=== PATIENT | male | born 1975 | race Caucasian/White ===

== ENCOUNTER 2017-03-10 14:34 | Observation (INO) | payer BC, OTHER ==
--- NOTE | 2017-03-10 14:38 | PDOC ---
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 The patient describes his arm and chest pain as an intermittent stabbing pain that is triggered by raising his hand. The patient notes that his chest and left arm pain is worsened on exertion, deep inhalation, and when he uses dipping tobacco. The patient notes that his pain is alleviated when at rest. He notes that on Saturday he had an emergency root canal for an infected abscess. He states that he has been on antibiotics since his root canal. 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 Family History: Father- 2 Strokes, Cardiomegaly <Omid Mcfarland - Last Filed: 03/10/17 15:14> <Олег Reyes - Last Filed: 03/10/17 16:27> - General Chief Complaint: Pain Stated Complaint: LEFT ARM PAIN AND CHEST PAIN AND DIZZY Time Seen by Provider: 03/10/17 14:38 Past History <Omid Mcfarland - Last Filed: 03/10/17 15:14> - Past Medical History Anemia: No Asthma: No Cancer: No Cardiac Disorders: No CVA: No COPD: No CHF: No DVT: No Dementia: No Diabetes: No Dialysis: No - Immunization History Immunization Up to Date: Yes - Suicide/Smoking/Psychosocial Hx Smoking Status: No Smoking History: Never smoked Years of Tobacco Use: 10 Number of Cigarettes Smoked Daily: 0 If you are a former smoker, when did you quit?: 2006 Hx Alcohol Use: No <Олег Reyes - Last Filed: 03/10/17 16:27> - Past Medical History Allergies/Adverse Reactions: Allergies Allergy/AdvReac Type Severity Reaction Status Date / Time No Known Allergies Allergy Verified 03/10/17 14:36 Home Medications: Ambulatory Orders NK [No Known Home Medication] 03/10/17 Review of Systems - Review of Systems Able to Perform ROS?: Yes Comments:: 03/10/17 14:56 CONSTITUTIONAL: No: Chills, Diaphoresis, Fever, Loss of Appetite, Malaise, Weakness, Weight Stable, Unintentional Wgt. Loss, Unexplained wgt Loss, Other HEENTM: No: Eye Pain, Blurred Vision, Tearing, Recent change in vision, Double Vision, Cataracts, Ear Pain, Ocular Prothesis, Ear Discharge, Nose Pain, Nose Congestion , Tinnitus, Nose Bleeding, Hearing Loss, Throat Pain, Throat Swelling, Mouth Pain, Dental Problems, Difficulty Swallowing, Mouth Swelling, Other RESPIRATORY: No: Cough, Orthopnea, Shortness of Breath, SOB with Exertion, SOB at Rest, Stridor, Wheezing, Productive cough, Hemoptysis, Other CARDIAC (ROS): Yes: Symptoms Reported, See HPI. Chest pain, Lightheadedness, dizziness No: Edema, Irregular Heart Rate, Palpitations, Syncope, Chest Tightness, Other ABD/GI: No: Abdominal Distended, Abd. Pain w/ defecation, Blood Streaked Bowels, Constipated, Diarrhea, Difficulty Swallowing, Nausea, Poor Appetite, Poor Fluid Intake, Rectal Bleeding, Vomiting, Indigestion, Abdominal cramping, Tarry Stools , Other : No: dysuria MUSCULOSKELETAL: Yes: Symptoms Reported, See HPI. No: Back Pain, Gout, Joint Pain, Joint Swelling, Muscle Pain, Muscle Weakness, Neck Pain, Joint Stiffness, Other INTEGUMENTARY: No: Bruising, Change in Color, Change in Hair/Nails, Dryness, Erythema, Flushing , Lesions, Lumps, Pallor, Pruritus, Rash, Sweating, Other NEUROLGOICAL: Yes: Symptoms reported, See HPI. Dizziness No: Headache, Numbness, Paresthesia, Pre-Existing Deficit, Seizure, Tingling, Tremors, Weakness, Unsteady Gait, Ataxia, All Other Systems: Reviewed and Negative <Omid Mcfarland - Last Filed: 03/10/17 15:14> *Physical Exam - Physical Exam Comments: 03/10/17 14:56 GENERAL APPEARANCE: Yes: Appropriately Dressed, Nourished. No: Apparent Distress, Disheveled, Mild Distress, Moderate Distress, Severe Distress, Alcohol on Breath, Intoxicated, Cachetic, Obese, Thin, Other HEENT: positive: EOMI, LAURENCE, Normal ENT Inspection, Normal Voice, TMs Normal, Pharynx Normal. negative: Symmetrical, Pale Conjunctivae, Photophobia, Scleral Icterus (R), Scleral Icterus (L), Muffled/Hoarse voice, Pharyngeal Erythema, Tonsillar Exudate, Tonsillar Erythema, Nasal Congestion, Rhinorrhea, Sinus Tenderness, Orbits, Hearing Decreased, Hearing Grossly Normal, TM Bulging, TM Dull, TM Erythema, Lesions, Torre, Excessive drooling, Thrush, Other NECK: positive: Trachea midline, Normal Thyroid, Supple. negative: Tender, Rigid, Carotid bruit, Decreased range of motion, Stridor, Lymphadenopathy (R), Lymphadenopathy (L), Rigidity, Tender lateral, Tender midline, Thyromegaly, Other RESPIRATORY/CHEST: positive: Lungs Clear, Normal Breath Sounds. negative: Accessory Muscle Use, Chest Tender, Respiratory Distress, Labored Respiration, Rapid RR, Decreased Breath Sounds, Paradoxal Breathing, Crackles, Rales, Rhonchi , Stridor, Wheezing, Dullness, Hyperresonant, Plerual Rub, Other CARDIOVASCULAR: positive: Regular Rate, Regular Rhythm, S1, S2. negative: Edema , JVD, Murmur, Bradycardia, Tachycardia, Diastolic Murmur, Systolic Murmur, Gallop/S3, Gallop/S4, Irregularly Irregular, Irregular, Other VASCULAR PULSES: Femoral (R): 4+, Femoral (L): 4+, Carotid (R): 4+, Carotid (L) : 4+, Dorsalis-Pedis (R): 4+, Doralis-Pedis (L): 4+ Gastrointestinal/Abdominal: positive: Normal Bowel Sounds, Flat, Soft. negative : Tender, Organomegaly, Pulsatile Mass, Increased Bowel Sounds, Decreased BS, Protuberent, Distended, Guarding, Rebound, Tenderness, Hernia, Mass, Hepatomegaly, Spleenomegaly, Other LYMPHATIC: negative: Adenopathy, Tenderness, Other MUSCULOSKELETAL: positive: Normal Inspection. negative: CVA Tenderness, CVA Tenderness (R), CVA Tenderness (L), Decreased Range of Motion, Muscle Spasm, Vertebral Tenderness, Other EXTREMITY: positive: Normal Capillary Refill, Normal Inspection, Normal Range of Motion. negative: Tender, Pelvis Stable, Coldness, Cyanosis, Delayed Capillary Refill, Pedal Edema, Swelling, Calf Tenderness, Erythema, Inflammation , Other INTEGUMENTARY: positive: Normal Color, Dry, Warm. 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 negative: Abnormal Cranial NS, Respond to painful stimul, Responsive, EOM Palsy, Facial Droop, Numbness, Sensory Deficit, Finger to Nose, Confused, Disoriented, Depressed Affect, Babinski, Other <Omid Mcfarland - Last Filed: 03/10/17 15:14> Heart Score/ECG Review - ECG Impressions Comment:: 03/10/17 14:58 ECG Impression: Normal sinus rhythm at 62 rate. No STEMI. Incomplete RBBB. Only change from prior ECG is a lead 3 inverted T-wave. <Omid Mcfarland - Last Filed: 03/10/17 15:14> - History History: Moderately suspicious - Electrocardiogram EKG: Normal - Age Age: </= 45 - Risk Factors Based on the list above the patient has:: No risk factors known - Troponin Troponin: </= normal limit - Score Heart Score - Total: 1 <Олег Reyes - Last Filed: 03/10/17 16:27> ED Treatment Course - LABORATORY CBC & Chemistry Diagram: 03/10/17 15:07 03/10/17 15:07 - RADIOLOGY Radiograph Interpretation: 03/10/17 15:16 Chest X-ray Impression: No acute disease. <Omid Mcfarland - Last Filed: 03/10/17 15:14> - LABORATORY CBC & Chemistry Diagram: 03/10/17 15:07 03/10/17 15:07 - ADDITIONAL ORDERS Additional order review: 03/10/17 16:25 CXR normal EKG only change is lead III T wave inversion Discussed with Hospitalist Dr. Santos, will admit for obervation, and stress test in morning Patient is in agreement with plan The jaw pain for the tooth canal may be heart related <Олег Reyes - Last Filed: 03/10/17 16:27> *DC/Admit/Observation/Transfer - Attestations Scribe Attestion: 03/10/17 14:58 Documentation prepared by Omid Mcfarland, acting as medical assistant prn for Олег Reyes MD. <Omid Mcfarland - Last Filed: 03/10/17 15:14> - Discharge Dispostion Admit: Yes <Олег Reyes - Last Filed: 03/10/17 16:27> Diagnosis at time of Disposition: Chest pain Qualifiers: Chest pain type: unspecified Qualified Code(s): R07.9 - Chest pain, unspecified - Discharge Dispostion Condition at time of disposition: Stable
[2017-03-10 15:26] LABS: BASO % 1.5 % (0-2.0); EOS % 4.3 % (0-4.5); HEMATOCRIT 47.7 % (35.4-49); HEMOGLOBIN 15.6 GM/dl (11.7-16.9); LYMPH % 31.3 % (8-40); MCH 30.5 pg (25.7-33.7); MCHC 32.7 g/dl (32.0-35.9); MEAN CELL VOLUME 93.2 fl (80-96); MEAN PLT VOLUME 9.1 fl (7.5-11.1); MONO % 9.5 % (3.8-10.2); NEUT % 53.4 % (42.8-82.8); PLATELET COUNT 213 K/MM3 (134-434); RBC 5.12 M/mm3 (4.00-5.60); RDW 12.4 % (11.9-15.9); WHITE BLOOD COUNT 5.3 K/mm3 (4.0-10.8)
[2017-03-10 15:34] LABS: ALBUMIN 4.1 g/dl (3.5-5.0); ALK PHOS 40 U/L (32-92); ANION GAP 7 (8-16); BILIRUBIN,TOTAL 0.8 mg/dl (0.2-1.0); BLOOD UREA NITROGEN 10 mg/dl (7-18); CALCIUM 9.2 mg/dl (8.4-10.2); CHLORIDE 102 mmol/L (98-107); CO2 25 mmol/L (22-28); CREATININE 0.8 mg/dl (0.6-1.3); GLUCOSE,RANDOM 107 mg/dl (74-106); POTASSIUM 4.1 mmol/L (3.5-5.1); SGOT/AST 25 U/L (10-42); SGPT/ALT 32 U/L (10-40); SODIUM 134 mmol/L (136-145); TOT PROT 6.9 g/dl (6.4-8.3)
[2017-03-10 17:57] VITALS: BMI 24.8
[2017-03-10] MEDS ORDERED: ASPIRIN 325 MG TABLET PO ONE (21:53)
--- NOTE | 2017-03-10 22:10 | HP ---
CHIEF COMPLAINT: chest pain PCP: none HISTORY OF PRESENT ILLNESS: This is a 41 year old male with no past medical history who presented to the ED with chest pain, left arm pain/numbness and dizziness intermittently x 5 days. dizziness sometimes occurs with standing but not always and sometimes when he steps off an elevator. Chest pain is intermittent and left arm pain occurs with certain movements. Left arm goes numb if laying in bed and holding his phone up for long periods; resolves with putting arm down. He is also root canal on Saturday. ER course was notable for: (1) troponin neg x 1 (2) ECG with incomplete RBBB Recent Travel: pt denies PAST MEDICAL HISTORY: pt denies PAST SURGICAL HISTORY: pt denies Social History: Smoking: quit smoking 10y ago, still uses dip Alcohol: 4-6 beers most nights after work, more on weekends, never had any tremors or withdrawal sxs Drugs: pt denies Family History: father with h/o CVA in 70s, DM, PPM mother with dementia, HTN maternal aunts and uncles with CVAS sis-healthy 3 biological children-healthy Allergies No Known Allergies Allergy (Verified 03/10/17 14:36) HOME MEDICATIONS: 3 Medication Instructions Recorded NK [No Known Home Medication] 03/10/17 REVIEW OF SYSTEMS CONSTITUTIONAL: Absent: fever, chills, diaphoresis, generalized weakness, malaise, loss of appetite, weight change HEENT: Absent: rhinorrhea, nasal congestion, throat pain, throat swelling, difficulty swallowing, mouth swelling, ear pain, eye pain, visual changes CARDIOVASCULAR: Present: chest pain, L arm pain/numbness Absent: syncope, palpitations, irregular heart rate, lightheadedness, peripheral edema RESPIRATORY: Absent: cough, shortness of breath, dyspnea with exertion, orthopnea, wheezing, stridor, hemoptysis GASTROINTESTINAL: Absent: abdominal pain, abdominal distension, nausea, vomiting, diarrhea, constipation, melena, hematochezia GENITOURINARY: Absent: dysuria, frequency, urgency, hesitancy, hematuria, flank pain, genital pain MUSCULOSKELETAL: Absent: myalgia, arthralgia, joint swelling, back pain, neck pain SKIN: Absent: rash, itching, pallor HEMATOLOGIC/IMMUNOLOGIC: Absent: easy bleeding, easy bruising, lymphadenopathy, frequent infections ENDOCRINE: Absent: unexplained weight gain, unexplained weight loss, heat intolerance, cold intolerance NEUROLOGIC: Present: dizziness Absent: headache, focal weakness or paresthesias, unsteady gait, seizure, mental status changes, bladder or bowel incontinence PSYCHIATRIC: Absent: anxiety, depression, suicidal or homicidal ideation, hallucinations. PHYSICAL EXAMINATION Vital Signs - 24 hr 3 03/10/17 03/10/17 03/10/17 14:36 16:27 17:50 Temperature 97.4 F L 98.5 F Pulse Rate 73 87 Pulse Rate [ 80 Right Radial] Respiratory 18 16 17 Rate Blood Pressure 105/78 121/74 Blood Pressure 113/77 [Right Arm] O2 Sat by Pulse 100 98 Oximetry (%) GENERAL: Awake, alert, and fully oriented, in no acute distress. HEAD: Normal with no signs of trauma. EYES: Pupils equal, round and reactive to light, extraocular movements intact, sclera anicteric, conjunctiva clear. No lid lag. EARS, NOSE, THROAT: Ears normal, nares patent, oropharynx clear without exudates. Moist mucous membranes. NECK: Normal range of motion, supple without lymphadenopathy, JVD, or masses. LUNGS: Breath sounds equal, clear to auscultation bilaterally. No wheezes, and no crackles. No accessory muscle use. HEART: Regular rate and rhythm, normal S1 and S2 without murmur, rub or gallop. ABDOMEN: Soft, nontender, not distended, normoactive bowel sounds, no guarding, no rebound, no masses. No hepatomegaly or splenomegaly. MUSCULOSKELETAL: Normal range of motion at all joints. No bony deformities or tenderness. No CVA tenderness. UPPER EXTREMITIES: 2+ pulses, warm, well-perfused. No cyanosis. No clubbing. No peripheral edema. LOWER EXTREMITIES: 2+ pulses, warm, well-perfused. No calf tenderness. No peripheral edema. NEUROLOGICAL: Cranial nerves II-XII intact. Normal speech. Normal gait. PSYCHIATRIC: Cooperative. Good eye contact. Appropriate mood and affect. SKIN: Warm, dry, normal turgor, no rashes or lesions noted, normal capillary refill. Laboratory Results - last 24 hr 3 03/10/17 03/10/17 03/10/17 15:07 15:07 15:07 WBC 5.3 RBC 5.12 Hgb 15.6 Hct 47.7 MCV 93.2 MCH 30.5 MCHC 32.7 RDW 12.4 Plt Count 213 MPV 9.1 Neutrophils % 53.4 Lymphocytes % 31.3 Monocytes % 9.5 Eosinophils % 4.3 Basophils % 1.5 Sodium 134 L Potassium 4.1 Chloride 102 Carbon Dioxide 25 Anion Gap 7 L BUN 10 Creatinine 0.8 Creat Clearance w eGFR > 60 Random Glucose 107 H Calcium 9.2 Total Bilirubin 0.8 AST 25 ALT 32 Alkaline Phosphatase 40 Troponin I < 0.03 L Total Protein 6.9 Albumin 4.1 ECG Normal sinus rhythm with sinus arrhythmia vent rate 62, QTC 383 incomplete RBB ASSESSMENT/PLAN: 41yF with no PMH presented with chest pain, L arm pain / numbness and dizziness off and on x 5 days. Chest pain - unlikely cardiac but given family history will admit for troponins and stress test in am - troponin neg x 1, pending x 2 more - NPO for stress test in am - left arm pain/numbness could be referred from neck, would get outpatient eval if persists DVT PPX - deferred, expected LOS <48h FEN - defer ivf, tolerating po and will be NPO for short while only - BMP in am - NPO after midnight. Dispo: pt currently requires further observation for management of his emergent condition. Visit type - Emergency Visit Emergency Visit: Yes ED Registration Date: 03/10/17 Care time: The patient presented to the Emergency Department on the above date and was hospitalized for further evaluation of their emergent condition. - New Patient This patient is new to me today: Yes Date on this admission: 03/10/17 - Critical Care Critical Care patient: No
[2017-03-11 09:02] LABS: ANION GAP 9 (8-16); BLOOD UREA NITROGEN 10 mg/dl (7-18); CALCIUM 8.9 mg/dl (8.4-10.2); CHLORIDE 103 mmol/L (98-107); CO2 25 mmol/L (22-28); CREATININE 0.8 mg/dl (0.6-1.3); GLUCOSE,RANDOM 102 mg/dl (74-106); POTASSIUM 3.9 mmol/L (3.5-5.1); SODIUM 137 mmol/L (136-145)
[2017-03-11 09:05] LABS: BASO % 0.4 % (0-2.0); EOS % 5.8 % (0-4.5); HEMATOCRIT 44.3 % (35.4-49); HEMOGLOBIN 14.6 GM/dl (11.7-16.9); LYMPH % 39.8 % (8-40); MCH 30.8 pg (25.7-33.7); MCHC 33.1 g/dl (32.0-35.9); MEAN CELL VOLUME 93.1 fl (80-96); MEAN PLT VOLUME 8.8 fl (7.5-11.1); MONO % 8.7 % (3.8-10.2); NEUT % 45.3 % (42.8-82.8); PLATELET COUNT 213 K/MM3 (134-434); RBC 4.76 M/mm3 (4.00-5.60); RDW 11.9 % (11.9-15.9); WHITE BLOOD COUNT 5.4 K/mm3 (4.0-10.8)
--- NOTE | 2017-03-11 11:15 | PN ---
Physical Exam: SUBJECTIVE: Patient seen and examined, reports feeling well, denies any chest pain OBJECTIVE: patient is a 41 year old male with no past medical history, admitted from the emergency department for chest pain r/o acs. Vital Signs Period Temp Pulse Resp BP Sys/Marie Pulse Ox Last 24 Hr 97.4 F-98.5 F 65-87 16-18 95-121/51-78 97-100 GENERAL: The patient is awake, alert, and fully oriented, in no acute distress. HEAD: Normal with no signs of trauma. EYES: PERRL, extraocular movements intact, sclera anicteric, conjunctiva clear. No ptosis. ENT: Ears normal, nares patent, oropharynx clear without exudates, moist mucous membranes. NECK: Trachea midline, full range of motion, supple. LUNGS: Breath sounds equal, clear to auscultation bilaterally, no wheezes, no crackles, no accessory muscle use. HEART: Regular rate and rhythm, S1, S2 without murmur, rub or gallop. ABDOMEN: Soft, nontender, nondistended, normoactive bowel sounds, no guarding, no rebound, no hepatosplenomegaly, no masses. EXTREMITIES: 2+ pulses, warm, well-perfused, no edema. NEUROLOGICAL: Cranial nerves II through XII grossly intact. Normal speech, gait not observed. PSYCH: Normal mood, normal affect. SKIN: Warm, dry, normal turgor, no rashes or lesions noted Laboratory Results - last 24 hr 03/10/17 03/10/17 03/10/17 15:07 15:07 15:07 WBC 5.3 RBC 5.12 Hgb 15.6 Hct 47.7 MCV 93.2 MCH 30.5 MCHC 32.7 RDW 12.4 Plt Count 213 MPV 9.1 Neutrophils % 53.4 Lymphocytes % 31.3 Monocytes % 9.5 Eosinophils % 4.3 Basophils % 1.5 Sodium 134 L Potassium 4.1 Chloride 102 Carbon Dioxide 25 Anion Gap 7 L BUN 10 Creatinine 0.8 Creat Clearance w eGFR > 60 Random Glucose 107 H Calcium 9.2 Magnesium Total Bilirubin 0.8 AST 25 ALT 32 Alkaline Phosphatase 40 Creatine Kinase Troponin I < 0.03 L Total Protein 6.9 Albumin 4.1 03/10/17 03/10/17 03/11/17 21:00 21:00 06:00 WBC 5.4 RBC 4.76 Hgb 14.6 Hct 44.3 MCV 93.1 MCH 30.8 MCHC 33.1 RDW 11.9 Plt Count 213 MPV 8.8 Neutrophils % 45.3 Lymphocytes % 39.8 D Monocytes % 8.7 Eosinophils % 5.8 H Basophils % 0.4 Sodium Potassium Chloride Carbon Dioxide Anion Gap BUN Creatinine Creat Clearance w eGFR Random Glucose Calcium Magnesium Total Bilirubin AST ALT Alkaline Phosphatase Creatine Kinase 94 Troponin I < 0.03 L Total Protein Albumin 03/11/17 03/11/17 03/11/17 06:00 06:00 06:00 WBC RBC Hgb Hct MCV MCH MCHC RDW Plt Count MPV Neutrophils % Lymphocytes % Monocytes % Eosinophils % Basophils % Sodium 137 Potassium 3.9 Chloride 103 Carbon Dioxide 25 Anion Gap 9 BUN 10 Creatinine 0.8 Creat Clearance w eGFR Random Glucose 102 Calcium 8.9 Magnesium 2.0 Total Bilirubin AST ALT Alkaline Phosphatase Creatine Kinase 79 Troponin I < 0.03 L Total Protein Albumin ECG Normal sinus rhythm with sinus arrhythmia vent rate 62, QTC 383 incomplete RBB ASSESSMENT/PLAN: Chest pain - troponin x 3 wnl - pending echo and stress DVT PPX - deferred, expected LOS <48h FEN - low sodium diet - Dispo: pt currently requires further observation for management of his emergent condition. Visit type - Emergency Visit Emergency Visit: Yes ED Registration Date: 03/10/17 Care time: The patient presented to the Emergency Department on the above date and was hospitalized for further evaluation of their emergent condition. - New Patient This patient is new to me today: Yes Date on this admission: 03/11/17 - Critical Care Critical Care patient: No - Discharge Referral Referred to [facility] Med [facility] No
--- NOTE | 2017-03-11 15:55 | EKG ---
Test Reason : Blood Pressure : / mmHG Vent. Rate : 062 BPM Atrial Rate : 062 BPM P-R Int : 124 ms QRS Dur : 102 ms QT Int : 378 ms P-R-T Axes : 057 013 022 degrees QTc Int : 383 ms NORMAL SINUS RHYTHM WITH SINUS ARRHYTHMIA INCOMPLETE RIGHT BUNDLE BRANCH BLOCK WHEN COMPARED WITH ECG OF 05-AUG-2008 11:45, NO SIGNIFICANT CHANGE WAS FOUND Confirmed by MD ANNY, PHILIPPE ([id number]) on 03/11/2017 3:55:39 PM Referred By: HECTOR PAIGE Confirmed By:PHILIPPE MCCORMICK MD
[2017-03-11] MEDS ORDERED: diphenhydrAMINE HCL 25 MG CAPSULE (FP) PO ONE (21:00)
[2017-03-11] MEDS: ASPIRIN COATED 81 MG TABLET.EC PO SCH (23:17)
[2017-03-12] MEDS: ASPIRIN COATED 81 MG TABLET.EC PO SCH (09:15)
[2017-03-12 10:06] LABS: CHOLESTEROL 173 mg/dl; HDL CHOLESTEROL 47 mg/dl (29-89); LDL CHOLESTEROL (ONLY DFH) 98 mg/dl; TRIGLYCERIDES 138 mg/dl (35-160)
--- NOTE | 2017-03-12 11:24 | CONSULT ---
Consult Consult Specialty:: Cardiology Reason for Consultation:: Chest pain, abnormal stress test - History of Present Illness Chief Complaint: Chest pain History of Present Illness: 41 yo male with past tobacco until ya, no sign pmhx, here with left chest pain Patient has no hx of Mi, CHF or CP syndrome. Since saturday, he has been having intermittent, sharp, left arm/chest pain -> reproducible when holding cell phone, w/o associate symptoms No exertional symptoms. Some dizziness with change in body position, independent of the chest pain. No SOB, palpitations. No BAM, OND or orthopnea No regular exercise. He reports having hip his left arm against a door recently They did a nuclear stress test which showed; 10" B, 11.7 mets, 97% MPHR, small , subtle, mild inferior ischemia, from base-mid cavity, EF 589% Echo showed nl LV size , EF 61%, mild MR, borderline AR dil at 3.8 cm Hence this consult - History Source History Provided By: Patient - Alcohol/Substance Use Hx Alcohol Use: Yes Number of Drinks Daily: 4 - Smoking History Smoking history: Former smoker (1ppd -> quit 10 ya) Have you smoked in the past 12 months: No Aproximately how many cigarettes per day: 0 If you are a former smoker, when did you quit?: 2006 - Social History Usual Living Arrangement: With Spouse 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 Home Medications - Allergies Allergies/Adverse Reactions: Allergies Allergy/AdvReac Type Severity Reaction Status Date / Time No Known Allergies Allergy Verified 03/10/17 14:36 - Home Medications Home Medications: Ambulatory Orders NK [No Known Home Medication] 03/10/17 Family Disease History - Family Disease History Family Disease History: Heart Disease: Father (CHf anf PPM, dfied of CVA) Review of Systems - Review of Systems Constitutional: reports: No Symptoms Eyes: reports: No Symptoms HENT: reports: No Symptoms Neck: reports: No Symptoms Cardiovascular: reports: Other (see HPI) Respiratory: reports: No Symptoms Musculoskeletal: reports: No Symptoms Neurological: reports: No Symptoms Psychiatric: reports: No Symptoms Physical Exam Vital Signs: Vital Signs Temperature 97.5 F L 03/12/17 06:00 Pulse Rate 63 03/12/17 06:00 Respiratory Rate 17 03/12/17 06:00 Blood Pressure 108/62 03/12/17 06:00 O2 Sat by Pulse Oximetry (%) 97 01/30/18 06:00 Constitutional: Yes: No Distress Eyes: No: Conjunctiva Clear HENT: Yes: Atraumatic Neck: Yes: Supple Cardiovascular: Yes: Regular Rate and Rhythm. No: Murmur Respiratory: Yes: CTA Bilaterally Gastrointestinal: Yes: Normal Bowel Sounds, Soft. No: Tenderness Extremities: Yes: Other Edema: No Peripheral Pulses WNL: Yes Neurological: Yes: Alert, Oriented Psychiatric: Yes: Alert, Oriented Labs: CBC, BMP 03/11/17 06:00 03/11/17 06:00 Imaging - Results Chest X-ray: Report Reviewed, Image Reviewed EKG: Report Reviewed, Image Reviewed (SR, inc RBBB) Assessment/Plan 41 yo ex smoker, no family hx of premature CAD (but father with PPM/CHF in his 60s), here atypical chest pain -> reproducible with arm mvt/position He ruled out for an [place], buta stress test showed small, mild inferior ischemia Given the above, I think pt should be managed medically, ie ASA 81 daily and risk factor modification to include diet, regular exercise, etc Rec: ASA 81 daily Check fasting lipids -> ow threshold for treating with statin May d/c home Reduce etoh intake Regular exercise, diet Thanks! D/w pt and at bedside D/w Erika Clemons
--- NOTE | 2017-03-12 11:59 | DS ---
Physical Exam: SUBJECTIVE: Patient seen and examined, reports feeling well, denies any episodes of chest discomfort. OBJECTIVE: Patient is a 41 year old male with no past medical history who presented to the ED with chest pain, left arm pain/numbness and dizziness intermittently x 5 days. dizziness sometimes occurs with standing but not always and sometimes when he steps off an elevator. Chest pain is intermittent and left arm pain occurs with certain movements. Left arm goes numb if laying in bed and holding his phone up for long periods; resolves with putting arm down. He is also root canal on Saturday. ER course was notable for: (1) troponin neg x 1 (2) ECG with incomplete RBBB Vital Signs Period Temp Pulse Resp BP Sys/Marie Pulse Ox Last 24 Hr 97.5 F-98.8 F 57-81 17-19 101-112/59-70 97-99 PHYSICAL EXAM GENERAL: The patient is awake, alert, and fully oriented, in no acute distress. HEAD: Normal with no signs of trauma. EYES: PERRL, extraocular movements intact, sclera anicteric, conjunctiva clear. ENT: Ears normal, nares patent, oropharynx clear without exudates, moist mucous membranes. NECK: Trachea midline, full range of motion, supple. LUNGS: Breath sounds equal, clear to auscultation bilaterally, no wheezes, no crackles, no accessory muscle use. HEART: Regular rate and rhythm, S1, S2 without murmur, rub or gallop. ABDOMEN: Soft, nontender, nondistended, normoactive bowel sounds, no guarding, no rebound, no hepatosplenomegaly, no masses. EXTREMITIES: 2+ pulses, warm, well-perfused, no edema. NEUROLOGICAL: Cranial nerves II through XII grossly intact. Normal speech, gait not observed. PSYCH: Normal mood, normal affect. SKIN: Warm, dry, normal turgor, no rashes or lesions noted. LABS Laboratory Results - last 24 hr 03/12/17 08:44 Triglycerides 138 Cholesterol 173 Total LDL Cholesterol 98 HDL Cholesterol 47 CBC WBC 5.4 K/mm3 (4.0-10.8) 03/11/17 06:00 RBC 4.76 M/mm3 (4.00-5.60) 03/11/17 06:00 Hgb 14.6 GM/dl (11.7-16.9) 03/11/17 06:00 Hct 44.3 % (35.4-49) 03/11/17 06:00 MCV 93.1 fl (80-96) 03/11/17 06:00 MCH 30.8 pg (25.7-33.7) 03/11/17 06:00 MCHC 33.1 g/dl (32.0-35.9) 03/11/17 06:00 RDW 11.9 % (11.9-15.9) 03/11/17 06:00 Plt Count 213 K/MM3 (134-434) 03/11/17 06:00 MPV 8.8 fl (7.5-11.1) 03/11/17 06:00 Neutrophils % 45.3 % (42.8-82.8) 03/11/17 06:00 Lymphocytes % 39.8 % (8-40) D 03/11/17 06:00 Monocytes % 8.7 % (3.8-10.2) 03/11/17 06:00 Eosinophils % 5.8 % (0-4.5) H 03/11/17 06:00 Basophils % 0.4 % (0-2.0) 03/11/17 06:00 Current Problems Problem Status Onset Code Chest pain Acute R07.9 BMI Body Mass Index (BMI) 24.8 Activity Ability Activity Ability Independent Current Medications Generic Name Dose Route Start Last Admin Trade Name Freq PRN Reason Stop Dose Admin Aspirin 81 mg 03/11/17 18:45 03/12/17 09:15 Ecotrin - PO 81 mg DAILY ULICES Administration New Results/Abnormals Eosinophils % 5.8 % (0-4.5) H 03/11/17 06:00 Troponin I < 0.03 ng/ml (0.03-0.50) L 03/11/17 06:00 Special Labs Troponin I < 0.03 ng/ml (0.03-0.50) L 03/11/17 06:00 ECG Normal sinus rhythm with sinus arrhythmia vent rate 62, QTC 383 incomplete RBB HOSPITAL COURSE: Patient was admitted from the emergency department for chest pain, r/o acs. troponin x 3 wnl. echo lv wnl, myocardial perfusion scan, overall negative stress test, small zone of subtle irreversible. Date of Admission:03/10/17 Date of Discharge: 03/12/17 Minutes to complete discharge: 45 Discharge Summary Reason For Visit: CHEST PAIN Current Active Problems Chest pain (Acute) Condition: Stable - Instructions - Home Medications Comprehensive Discharge Medication List: Ambulatory Orders NK [No Known Home Medication] 03/10/17 - Discharge Referral Referred to [facility] No
[2017-03-12 12:33] VITALS: BP 111/61; PULSE 60; TEMP 98.1
== END 2017-03-12 12:33 | disposition home or self-care (01) ==
LOC: FER 14:34 → FM/S 17:22
PROVIDERS: ADMIT Internal Medicine; ATTEND Nurse Practitioner Family
DX: R07.9 Chest pain, unspecified (principal); Z87.891 Personal history of nicotine dependence; Z82.3 Family history of stroke; Z83.3 Family history of diabetes mellitus
CPT/HCPCS: 36415; 71045-TC; 78452-TC; 80048; 80053; 80061; 82550; 83735; 84484; 85025; 93005; 93017; 93306-TC; 99285-25; A9502; G0378

== ENCOUNTER 2020-12-30 15:26 | Emergency (ER) | payer BC, OTHER ==
[2020-12-30] MEDS ORDERED: CASIRIVIMAB/IMDEVIMAB 10 ML in SODIUM CHLORIDE 100 ML IVPB ONE ×2 (15:45→16:04)
[2020-12-30 15:49] VITALS: BMI 24.3
[2020-12-30 18:44] VITALS: BP 1116/72; PULSE 78; TEMP 99.3
== END 2020-12-30 20:54 | disposition home or self-care (01) ==
LOC: JER 15:26
DX: U07.1 COVID-19 (principal)
CPT/HCPCS: 71046-TC-FY; 99284-25; Q0240